=== PATIENT | female | born 1940 | race Caucasian/White ===

== ENCOUNTER 2017-07-23 13:45 | Emergency (ER) | payer MEDICARE ==
[~2017-07-23] VITALS: Ht 165.1 cm; Wt 67.1 kg
[2017-07-23] MEDS ORDERED: ARMOUR THYROID60 M1 PO (14:00)
[2017-07-23 14:22] LABS: ABSOLUTE BASOPHILS 0.1 thou/uL (0.0-0.2); ABSOLUTE EOSINOPHILS 0.1 thou/uL (0.0-0.7); ABSOLUTE MONOCYTES 0.5 thou/uL (0.0-1.2); ABSOLUTE NEUTROPHILS 4.6 thou/uL (1.6-8.1); BASOPHILS 0.8 %; EOSINOPHILS 1.3 %; HEMOGLOBIN 13.5 gm/dL (12.0-15.0); LYMPHOCYTES 27.5 %; MCH 29.6 pg (26.0-34.0); MCHC 33.7 g/dL (28.0-37.0); MCV 87.8 fL (80.0-100.0); MONOCYTES 7.4 %; MPV 7.7 fl. (7.2-11.1); NUCLEATED RBCS 0 /100WBC; PLATELET COUNT* 206 thou/uL (150-400); RBC 4.55 mil/uL (4.20-5.00); RDW-CV 14.7 % (10.5-14.5); WBC 7.2 thou/uL (4.0-11.0)
[2017-07-23 14:27] LABS: ANION GAP 7 mmol/L (7-16); BUN 16 mg/dL (7-18); CHLORIDE 104 mmol/L (98-107); CO2 27 mmol/L (21-32); CREATININE 0.7 mg/dL (0.6-1.3); GLUCOSE 104 mg/dL (70-99); POTASSIUM 4.1 mmol/L (3.5-5.1); SODIUM 138 mmol/L (136-145)
[2017-07-23 14:32] LABS: APTT 25.4 Seconds (25.0-31.3); PROTIME 10.1 Seconds (9.20-11.50)
[2017-07-23 14:34] LABS: ALBUMIN 3.7 g/dL (3.4-5.0); ALKALINE PHOSPHATASE 63 U/L (46-116); SGOT 21 U/L (15-37); SGPT 18 U/L (30-65); TOTAL BILIRUBIN 0.3 mg/dL (<0.1-1.0); TOTAL PROTEIN 6.8 g/dL (6.4-8.2); TROPONIN-I LEVEL <0.06 ng/mL (<0.06)
[2017-07-23 15:19] VITALS: BP 130/52
--- NOTE | 2017-07-23 15:21 | EKG ---
[place] [address] ELECTROCARDIOGRAM REPORT Name: STANISLAVMAXIMUS L Room: [facility]#: [id number] Admission: 07/23/17 Attend Phys: Discharge: 07/23/17 Date of : 44 Report #: [id number] THIS REPORT FOR: //name// [facility] ED Test Date: 2017-07-23 Test Time: 13:55:31 Pat Name: MAXIMUS [place] Department: Room: Gender: F Cardiovascular Or Nurse: VJ : 1940 Requested By: Kevin Ag Order Number: [id number] MD: Bull Toledo Measurements Intervals [place] Rate: 64 P: 63 AR: 159 QRS: 39 QRSD: 96 T: 34 QT: 440 QTc: 454 Interpretive Statements Sinus rhythm Probable left atrial enlargement RSR' in V1 or V2, right VCD or RVH No previous ECG available for comparison Electronically Signed On 07-23-2017 15:21:42 CDT by Bull Toledo [email or web address] <ELECTRONICALLY SIGNED> By: Bull Toledo MD, [facility] 07/23/17 1521 [id number] Bull Toledo MD, FACC /EPI
== END 2017-07-23 15:21 | disposition home or self-care (01) ==
LOC: M.ERS 13:45
PROVIDERS: Nurse Practitioner Family
DX: S06.0X0A Concussion without loss of consciousness, initial encounter (principal); E06.3 Autoimmune thyroiditis; W22.8XXA Striking against or struck by other objects, initial encounter; Y93.89 Activity, other specified; Y92.89 Other specified places as the place of occurrence of the external cause; Y99.8 Other external cause status

== ENCOUNTER → 2018-02-28 | Outpatient (CLI) | payer OTHER ==
[~2018-02-28] MED LIST: ARMOUR THYROID60 M1 PO
== END ==
LOC: M.CT 02-27 08:15
DX: I25.10 Atherosclerotic heart disease of native coronary artery without angina pectoris (principal)

== ENCOUNTER → 2018-03-05 | Outpatient (CLI) | payer MEDICARE | LOC: M.ULTRA 02-21 10:06 | DX: R55 Syncope and collapse (principal) ==

== ENCOUNTER → 2018-09-04 | Outpatient (CLI) | payer MEDICARE | LOC: M.ULTRA 11:30 | DX: M79.89 Other specified soft tissue disorders (principal); M79.605 Pain in left leg ==